=== PATIENT | male | born 1995 | race Hispanic/Latino ===

== ENCOUNTER → 2020-12-04 | Emergency (ER) | payer MEDICAID ==
[~2020-12-04] VITALS: Ht 175.3 cm; Wt 77.1 kg
[~2020-12-04] MED LIST: CIPR7.5D7 OT; IBUP-2070 PO; IBUPROFEN 600 MG TABLET PO ONE
== END | disposition home or self-care (01) ==
LOC: EDH 13:08
DX: H60.501 Unspecified acute noninfective otitis externa, right ear (principal); F41.9 Anxiety disorder, unspecified; F31.9 Bipolar disorder, unspecified